=== PATIENT | female | born 1990 | race African-American/Black ===

== ENCOUNTER → 2016-11-04 | Day surgery (SDC) | payer BC ==
[2016-11-03 13:04] LABS: Basophils # (auto) 0 uL; Basophils % (auto) 0.1 % (0.0-2.0); CONDITION Y; DEFINITIVE SEE PRINTOUT; Eosinophils # (auto) 0.1 uL; Eosinophils % (auto) 1.8 % (0.0-7.0); Hematocrit 35.1 % (36.0-46.0); Hemoglobin 11.1 g/dL (12.2-16.2); Lymphocytes # (auto) 1.6 uL; Mean Corpuscular Hemoglobin 24.4 pg (28.0-32.0); Mean Corpuscular Hgb Conc. 31.8 g/dL (32.0-36.0); Mean Corpuscular Volume 76.7 fL (80.0-100.0); Mean Platelet Volume 10.2 fL (7.4-10.4); Monocytes # (auto) 0.4 uL; Monocytes % (auto) 5.1 % (0.0-12.0); Neutrophils # (auto) 5.9 uL; Platelet Count (auto) 304 10^3/uL (140-450); SUSPECT SEE PRINTOUT; White Blood Cell 8.1 10^3/uL (4.4-10.8)
[2016-11-03 13:13] LABS: INR 0.97 (0.9-1.15); Prothrombin Time 10.6 sec (9.37-12.3)
[2016-11-03 13:16] LABS: Potassium 3.9 mmol/L (3.5-5.1)
[2016-11-03 13:22] LABS: Albumin 4.2 g/dL (3.4-5.0); BUN/Creatinine Ratio 19.7; Calcium 9.1 mg/dL (8.5-10.1)
[2016-11-03 13:24] LABS: Bilirubin, Total 0.5 mg/dL (0.2-1.0); Total Protein 8.5 g/dL (6.4-8.2)
[2016-11-03 13:50] LABS: Urine Color Red (Yellow)
[2016-11-03 13:51] LABS: Urine Bilirubin Negative (Negative); Urine Glucose Normal (Normal); Urine Urobilinogen Normal (Negative); Urine pH 6 (5.0-8.0)
[2016-11-03 13:52] LABS: Urine Blood 250 /uL (Negative); Urine Ketone Negative (Negative); Urine Nitrite Negative (Negative)
[2016-11-03 13:55] LABS: Urine RBC 5389 /hpf (0 - 4)
[2016-11-03 14:26] LABS: Anisocytosis Slight; Hypochromia Slight; Ovalocytes FEW; Platelet Estimate Adequate
[~2016-11-04] VITALS: Ht 167.6 cm; Wt 83.9 kg
[~2016-11-04] MED LIST: DEXAMETHASONE SOD PHOS 10MG/1ML VIAL INJ ONE; GLYCOPYRROLATE 0.2 MG/ML 1ML VIAL ONE; HYDR-4663 PO; MIDAZOLAM HCL 1MG/1ML-2 ML VIAL ONE; ONDANSETRON HCL 4 MG/2 ML VIAL IV ONE; ONDANSETRON HCL 4 MG/2 ML VIAL ONE; ceFAZolin 1GM/50ML D5W 100 ML IV ONE; fentaNYL CITRATE 100 MCG/2 ML VL ONE
[2016-11-04 11:20] VITALS: BP 116/73
== END | disposition home or self-care (01) ==
LOC: SUR 07:43
PROVIDERS: ATTEND Urology
DX: N20.0 Calculus of kidney (principal); D64.9 Anemia, unspecified; Z90.49 Acquired absence of other specified parts of digestive tract; Z98.51 Tubal ligation status; F17.200 Nicotine dependence, unspecified, uncomplicated
CPT/HCPCS: 36415; 50590; 80053; 81001; 85025; 85610; 85730; 87086; J0690; J1100; J2250; J2405; J3010

== ENCOUNTER 2016-12-02 12:25 | Day surgery (SDC) | payer BC ==
[2016-12-01 16:45] LABS: Basophils # (auto) 0 uL; Basophils % (auto) 0.5 % (0.0-2.0); CONDITION Y; DEFINITIVE SEE PRINTOUT; Eosinophils # (auto) 0.1 uL; Eosinophils % (auto) 1.4 % (0.0-7.0); Hematocrit 34.9 % (36.0-46.0); Hemoglobin 11.1 g/dL (12.2-16.2); Lymphocytes # (auto) 1.7 uL; Lymphocytes % (auto) 19.5 % (10.0-50.0); Mean Corpuscular Hemoglobin 25.3 pg (28.0-32.0); Mean Corpuscular Hgb Conc. 31.7 g/dL (32.0-36.0); Mean Corpuscular Volume 79.8 fL (80.0-100.0); Mean Platelet Volume 10.1 fL (7.4-10.4); Monocytes # (auto) 0.5 uL; Monocytes % (auto) 5.6 % (0.0-12.0); Neutrophils # (auto) 6.5 uL; Platelet Count (auto) 345 10^3/uL (140-450); White Blood Cell 8.9 10^3/uL (4.4-10.8)
[2016-12-01 16:53] LABS: Urine Bilirubin Negative (Negative); Urine Color Orange (Yellow); Urine Glucose Normal (Normal); Urine Ketone Negative (Negative); Urine Mucus FEW (None Seen); Urine Nitrite Negative (Negative); Urine RBC 1350 /hpf (0 - 4); Urine Urobilinogen Normal (Negative)
[2016-12-01 16:54] LABS: Urine Blood 3+ /uL (Negative)
[2016-12-01 16:56] LABS: Red Cell Distribution Width 23.4 % (11.6-16.0)
[2016-12-01 16:57] LABS: Potassium 3.2 mmol/L (3.5-5.1)
[2016-12-01 16:59] LABS: INR 0.96 (0.9-1.15); Partial Thromboplastin Time 26.6 sec (22.64-33.71); Prothrombin Time 10.5 sec (9.37-12.3)
[2016-12-01 17:02] LABS: Albumin 3.9 g/dL (3.4-5.0); BUN/Creatinine Ratio 11.2; Calcium 8.9 mg/dL (8.5-10.1)
[2016-12-01 17:04] LABS: Bilirubin, Total 0.5 mg/dL (0.2-1.0); Total Protein 8.1 g/dL (6.4-8.2)
[2016-12-01 17:29] LABS: Anisocytosis Slight; Hypochromia Slight; Platelet Estimate Adequate
[~2016-12-02] VITALS: Ht 167.6 cm; Wt 84.4 kg
[2016-12-02] MEDS ORDERED: ceFAZolin 1GM/50ML D5W 50 ML IV ONE (12:39)
[2016-12-02] MEDS ORDERED: MIDAZOLAM HCL 1MG/1ML-2 ML VIAL ONE (15:52)
[2016-12-02] MEDS ORDERED: fentaNYL CITRATE 100 MCG/2 ML VL ONE (15:52)
[2016-12-02] MEDS ORDERED: ONDANSETRON HCL 4 MG/2 ML VIAL IV ONE (16:30)
[2016-12-02] MEDS ORDERED: hydrALAZINE HCL 20 MG/ML VL IV PRN (16:30)
[2016-12-02] MEDS ORDERED: ePHEDrine SULFATE 50 MG/ML AMP IV PRN (16:30)
[2016-12-02] MEDS ORDERED: fentaNYL CITRATE 100 MCG/2 ML VL IV ONE (17:00)
[2016-12-02 17:45] VITALS: BP 118/85
== END 2016-12-02 18:10 | disposition home or self-care (01) ==
LOC: SUR 12:25
PROVIDERS: ATTEND Urology
DX: N13.30 Unspecified hydronephrosis (principal); N20.1 Calculus of ureter; E11.9 Type 2 diabetes mellitus without complications; D64.9 Anemia, unspecified; F17.210 Nicotine dependence, cigarettes, uncomplicated; Z90.49 Acquired absence of other specified parts of digestive tract
CPT/HCPCS: 36415; 52332; 80053; 81001; 81025; 84702; 85025; 85610; 85730; 87086; J0690; J2250; J3010; J7030